=== PATIENT | female | born 1955 | race Caucasian/White ===

== ENCOUNTER → 2020-07-20 | Outpatient (CLI) | payer MEDICARE, MEDICAID ==
[~2020-07-20] MED LIST: AMBIEN 10MG10 MG PO; ANTI-DIARRHEAL2 MG PO; ASPIRIN 81M81 MG/TA2 PO; ASPIRIN E.C. 8181 MG PO; BENADRYL25 M2 PO; BIOTIN2500 MCG PO; CALCIUM 600MG+D1 TAB PO; CEPHALEXIN500 M1 PO; COENZYME Q10 PO; COREG 25MG25 MG/TAB PO; COUMADIN4 MG PO; ELIQUIS 5MG PO; ESTRACE 1MG1 MG/TAB PO; FOLIC ACID 11 MG/TA1 PO; GLUCOPHAGE500 MG/TAB PO; Garlic PO; HAIRSKINNAILS PO; IPRATROPIUM BROM3 M1 IH; LASIX 40MG TABL40 MG PO; LIDODERM 5% PATC1 EA TP; LINZESS290CAP PO; LIORESAL20 MG PO; LIPITOR20 MG PO; LOTENSIN40 MG PO; LYRICA 100MG C100 M1 PO; LYRICA 50MG CAP50 MG PO; MAALOX ADVANCED1 CTB PO; MELATIN 3 MG-11 TAB PO; MELATONIN5 M1 PO; MELATONIN5 M1 SL; MUCINEX1200 MG PO; MULTI VITAMINS1 TAB PO; MULTIPLE VITAMI1 TA5 PO; NAPROSYN500 MG PO; NORCO 325 MG-51 TAB PO; NORCO 325 MG-7.1 TAB PO; NORVASC 10MG10 MG PO; OMEGA-3 1000 MG1 CAP PO; OMNICEF 300MG300 MG PO; PEPTO BISM262 MG/15 PO; PRIL40 PO; PRISTIQ100 MG PO; PROTONIX 40MG T40 MG PO; SENNA-S 50 MG-81 TAB PO; SLEEP TABS25 MG PO; SYNTHROID0.1 MG/TAB PO; THERAGRAN TAB1 UDTAB PO; TYLENOL 325MG325 MG PO; TYLENOL 500MG500 MG PO; ULTRAM 50MG TAB50 MG PO; VENTOLIN0.09 MG IH; VOLTAREN GEL 1%1 TU TP; VTAMINC250TA PO; XANAX 0.5MG0.5 MG PO; ZOLOFT 50MG50 MG; ZOLOFT 50MG50 MG PO; ZYRTEC 10MG10 MG PO
[2020-07-20 18:23] LABS: CALCIUM 8.9 mg/dL (8.4-10.2); CREATININE, serum 0.89 (0.52-1.25); POTASSIUM 4.5 mmol/L (3.4-5.0)
== END ==
LOC: ZLAB.STJ 18:12
PROVIDERS: Family Medicine
DX: R79.89 Other specified abnormal findings of blood chemistry (principal)

== ENCOUNTER → 2020-07-27 | Outpatient (CLI) | payer MEDICARE, MEDICAID ==
[2020-07-27 19:32] LABS: CALCIUM 8.8 mg/dL (8.4-10.2); CREATININE, serum 0.87 (0.52-1.25); POTASSIUM 4.6 mmol/L (3.4-5.0)
== END ==
LOC: ZLAB.STJ 19:07
PROVIDERS: Family Medicine
DX: Z01.89 Encounter for other specified special examinations (principal)

== ENCOUNTER → 2020-08-02 | Outpatient (CLI) | payer MEDICARE, MEDICAID ==
[2020-08-02 11:07] LABS: BUDDING YEAST Present /hpf; MUCOUS Present /lpf; PH 5 (5-8); SQUAMOUS EPITHELIAL 0-2 /hpf; URINE APPEARANCE Turbid; URINE BACTERIA Rare /hpf; URINE BILIRUBIN Negative (NEGATIVE); URINE BLOOD Negative (NEGATIVE); URINE COLOR Amber; URINE GLUCOSE Negative (NEGATIVE); URINE KETONE Negative (NEGATIVE); URINE LEUKOCYTE ESTERASE Trace (NEGATIVE); URINE NITRATE Negative (NEGATIVE); URINE PROTEIN(semi-quant) Negative (NEGATIVE); URINE RBC 0-2 /hpf; URINE UROBILINOGEN Negative (NEGATIVE)
[2020-08-02 21:15] LABS: COLLECTION METHOD CATHETER
== END ==
LOC: ZLAB.STJ 09:46
PROVIDERS: Family Medicine
DX: R82.90 Unspecified abnormal findings in urine (principal)

== ENCOUNTER → 2020-08-04 | Outpatient (CLI) | payer MEDICARE, MEDICAID ==
[2020-08-04 14:30] LABS: CALCIUM 8.7 mg/dL (8.4-10.2); CREATININE, serum 0.63 (0.52-1.25)
[2020-08-04 14:34] LABS: POTASSIUM 10.2 mmol/L (3.4-5.0)
== END ==
LOC: ZLAB.STJ 13:12
PROVIDERS: Family Medicine
DX: I10 Essential (primary) hypertension (principal)

== ENCOUNTER → 2020-08-05 | Outpatient (CLI) | payer MEDICARE, MEDICAID ==
[2020-08-05 12:48] LABS: CALCIUM 9.2 mg/dL (8.4-10.2); CREATININE, serum 0.74 (0.52-1.25)
[2020-08-05 12:49] LABS: POTASSIUM 4.3 mmol/L (3.4-5.0)
== END ==
LOC: ZCOL.LAB 12:36
PROVIDERS: Family Medicine
DX: G35 Multiple sclerosis (principal)

== ENCOUNTER 2020-08-07 18:03 | Emergency (ER) | payer MEDICARE, MEDICAID ==
[~2020-08-07] VITALS: Ht 167.6 cm; Wt 113.6 kg
[2020-08-07 18:04] VITALS: BP 112/73; TEMP 98.3
[2020-08-07 18:44] LABS: BASO % 0.3 % (0.0-2.0); EOS # 0.2 (0.0-0.7); EOS % 2.6 % (0-4.0); GRAN # 5.7 (1.4-6.5); GRAN % 66.8 % (42.2-75.2); LYMPH % 23.8 % (20.0-51.0); MEAN CELL VOLUME 82 fl (80.0-100.0); MEAN CORPUSCULAR HGB CONC 28 g/dl (33.0-37.0); MONO # 0.5 (0.1-0.6); MONO % 6.3 % (1.7-9.3); PLATELET COUNT 264 K/mm3 (130-400); RED BLOOD COUNT 3.65 M/mm3 (4.10-5.30); REDCELL DISTRIBUTION WIDTH-CV 19.4 % (11.5-14.5)
[2020-08-07 18:51] LABS: HEMATOCRIT 29.9 % (37.0-47.0); HEMOGLOBIN 8.5 g/dl (12.5-16.0); MEAN CORPUSCULAR HEMOGLOBIN 23 pg (27.0-31.0)
[2020-08-07 18:52] LABS: ALBUMIN 3.2 gm/dL (3.5-5.0); BILIRUBIN,TOTAL 0.3 mg/dL (0.0-1.0); CALCIUM 9.3 mg/dL (8.4-10.2); CREATININE, serum 0.72 (0.52-1.25); POTASSIUM 4.2 mmol/L (3.4-5.0); TOTAL PROTEIN 6.4 gm/dL (6.4-8.2)
[2020-08-07 19:16] LABS: INR 1.6 (0.8-3.0); PROTHROMBIN TIME 18.2 SECONDS (9.7-12.8)
[2020-08-07 23:03] VITALS: PULSE 75
[2020-09-20] MEDS ORDERED: LINZESS290CAP PO (04:20)
== END 2020-08-07 23:08 | disposition home or self-care (01) ==
LOC: COL.ER 18:03
PROVIDERS: Physician Assistant
DX: M25.551 Pain in right hip (principal); R10.31 Right lower quadrant pain; M79.661 Pain in right lower leg; E11.40 Type 2 diabetes mellitus with diabetic neuropathy, unspecified; F41.0 Panic disorder [episodic paroxysmal anxiety]; E05.90 Thyrotoxicosis, unspecified without thyrotoxic crisis or storm; G47.33 Obstructive sleep apnea (adult) (pediatric); Z95.5 Presence of coronary angioplasty implant and graft; Z86.711 Personal history of pulmonary embolism; Z86.718 Personal history of other venous thrombosis and embolism; Z90.710 Acquired absence of both cervix and uterus; Z90.49 Acquired absence of other specified parts of digestive tract; Z86.79 Personal history of other diseases of the circulatory system; Z91.048 Other nonmedicinal substance allergy status; Z88.1 Allergy status to other antibiotic agents; Z88.8 Allergy status to other drugs, medicaments and biological substances; Z79.82 Long term (current) use of aspirin; Z79.84 Long term (current) use of oral hypoglycemic drugs; Z79.01 Long term (current) use of anticoagulants; Z79.890 Hormone replacement therapy; Z79.51 Long term (current) use of inhaled steroids
CPT/HCPCS: J3010; Q9967

== ENCOUNTER → 2020-08-09 | Outpatient (CLI) | payer MEDICARE, MEDICAID ==
[~2020-08-09] MED LIST changes: +COLACE 100100 MG/CAP PO; +COUMADIN 22.5 MG/TAB PO; +IMDUR 60MG60 MG/TAB PO; +LEADER EYE ITCH5 ML OU; +PLAVIX 75MG TAB75 MG PO; +PRINIVIL40 MG PO; +RISPERDAL 0.5M0.5 MG PO; +RISPERDAL 1M1 MG/TAB PO; +ZOFRAN 4MG T4 MG/TAB PO
[2020-08-10 16:19] LABS: ALBUMIN 3.2 gm/dL (3.5-5.0); BILIRUBIN,TOTAL 0.4 mg/dL (0.0-1.0); CREATININE, serum 0.68 (0.52-1.25); MAGNESIUM 1.6 mg/dL (1.6-2.3); PHOSPHOROUS 3.8 mg/dL (2.5-4.5); THYROID STIMULATING HORMONE 2.02 uIU/mL (0.465-4.680); TOTAL PROTEIN 6.4 gm/dL (6.4-8.2)
[2020-08-14 12:21] LABS: ADRENOCORTICOTROPIC HORMONE SEE PCI; CORTISOL, AM (0800) 2
== END ==
LOC: ZLAB.STJ 11:00
PROVIDERS: Family Medicine
DX: E03.9 Hypothyroidism, unspecified (principal); I10 Essential (primary) hypertension

== ENCOUNTER → 2020-08-10 | Outpatient (CLI) | payer MEDICARE, MEDICAID ==
[2020-08-10 17:23] LABS: CREATININE, serum 0.68 (0.52-1.25); POTASSIUM 4.3 mmol/L (3.4-5.0)
== END ==
LOC: ZCOL.LAB 13:58
PROVIDERS: Family Medicine
DX: Z01.89 Encounter for other specified special examinations (principal)

== ENCOUNTER → 2020-08-11 | Outpatient (CLI) | payer MEDICARE, MEDICAID ==
[2020-08-11 13:44] LABS: COLLECTION METHOD CATHETER
[2020-08-11 13:55] LABS: MUCOUS Present /lpf; PH 5 (5-8); SQUAMOUS EPITHELIAL 0-2 /hpf; URINE APPEARANCE Clear; URINE BACTERIA None Seen /hpf; URINE BILIRUBIN Negative (NEGATIVE); URINE BLOOD Negative (NEGATIVE); URINE COLOR Yellow; URINE GLUCOSE Negative (NEGATIVE); URINE KETONE Negative (NEGATIVE); URINE LEUKOCYTE ESTERASE Negative (NEGATIVE); URINE NITRATE Negative (NEGATIVE); URINE PROTEIN(semi-quant) Negative (NEGATIVE); URINE UROBILINOGEN Negative (NEGATIVE); URINE WBC 0-2 /hpf
== END ==
LOC: ZLAB.STJ 13:27
PROVIDERS: Family Medicine
DX: Z01.89 Encounter for other specified special examinations (principal)

== ENCOUNTER 2020-08-12 14:35 | Emergency (ER) | payer MEDICARE, MEDICAID ==
[~2020-08-12] VITALS: Ht 167.6 cm; Wt 113.6 kg
[2020-08-12 14:33] VITALS: TEMP 98.4
[~2020-08-12 14:35] MED LIST changes: -COLACE 100100 MG/CAP PO; -COUMADIN 22.5 MG/TAB PO; -IMDUR 60MG60 MG/TAB PO; -LEADER EYE ITCH5 ML OU; -PLAVIX 75MG TAB75 MG PO; -PRINIVIL40 MG PO; -RISPERDAL 0.5M0.5 MG PO; -RISPERDAL 1M1 MG/TAB PO; -ZOFRAN 4MG T4 MG/TAB PO
[2020-08-12 14:57] LABS: BASO # 0.1 (0.0-0.2); BASO % 0.4 % (0.0-2.0); EOS # 0.3 (0.0-0.7); EOS % 2.4 % (0-4.0); GRAN # 9.6 (1.4-6.5); GRAN % 77.7 % (42.2-75.2); LYMPH # 1.8 (1.2-3.4); LYMPH % 14.5 % (20.0-51.0); MEAN CELL VOLUME 83 fl (80.0-100.0); MEAN CORPUSCULAR HGB CONC 28 g/dl (33.0-37.0); MEAN PLATELET VOLUME 9.9 fl (7.4-10.4); MONO # 0.6 (0.1-0.6); MONO % 4.8 % (1.7-9.3); PLATELET COUNT 273 K/mm3 (130-400); RED BLOOD COUNT 3.66 M/mm3 (4.10-5.30); REDCELL DISTRIBUTION WIDTH-CV 19.5 % (11.5-14.5)
[2020-08-12 14:58] LABS: HEMATOCRIT 30.3 % (37.0-47.0); HEMOGLOBIN 8.5 g/dl (12.5-16.0); MEAN CORPUSCULAR HEMOGLOBIN 23 pg (27.0-31.0)
[2020-08-12 15:05] LABS: INR 3.6 (0.8-3.0); PROTHROMBIN TIME 40.5 SECONDS (9.7-12.8)
[2020-08-12 15:09] LABS: ARTERIAL BLD GAS TCO2 CT 29.7; ARTERIAL BLOOD GAS BASE EXCESS 1.2 (-2-2); ARTERIAL BLOOD GAS PCO2 56.4 mmHg (35-45); ARTERIAL BLOOD GAS PO2 93.6 mmHg (80-100); ARTERIAL BLOOD GAS pH 7.31 (7.35-7.45)
[2020-08-12 15:10] LABS: ALBUMIN 3.4 gm/dL (3.5-5.0); BILIRUBIN,TOTAL 0.4 mg/dL (0.0-1.0); C-REACTIVE PROTEIN 2.1 mg/dL (0.0-0.9); CREATININE, serum 1.07 (0.52-1.25); POTASSIUM 3.8 mmol/L (3.4-5.0); TOTAL PROTEIN 6.6 gm/dL (6.4-8.2)
--- NOTE | 2020-08-12 17:14 | NUR ---
PT INTUBATED AT [address] CUTLER. INTUBATION WENT SMOOTH WITH GOOD COLOR CHANGE ON C02 DETECTOR AND GOOD BILATERAL BREATH SOUNDS. ET TUBE PLACED AT 22 @ THE [facility]. INITIAL SETTINGS GIVEN BY RT APPROVED BY DR CUTLER.
[2020-08-12 17:30] LABS: COLLECTION METHOD CLEAN CATCH
[2020-08-12 17:37] LABS: MUCOUS Present /lpf; PH 5 (5-8); SQUAMOUS EPITHELIAL 0-2 /hpf; URINE APPEARANCE Clear; URINE BACTERIA None Seen /hpf; URINE BILIRUBIN Negative (NEGATIVE); URINE BLOOD Negative (NEGATIVE); URINE COLOR Yellow; URINE GLUCOSE Negative (NEGATIVE); URINE KETONE Negative (NEGATIVE); URINE LEUKOCYTE ESTERASE Trace (NEGATIVE); URINE NITRATE Negative (NEGATIVE); URINE PROTEIN(semi-quant) Negative (NEGATIVE); URINE RBC 0-2 /hpf; URINE UROBILINOGEN Negative (NEGATIVE)
[2020-08-12 18:10] VITALS: BP 110/72; PULSE 84
[2020-09-20] MEDS ORDERED: LINZESS290CAP PO (04:20)
== END 2020-08-12 18:10 | disposition short-term general hospital (02) ==
LOC: COL.ER 14:35
PROVIDERS: Family Medicine
DX: J96.90 Respiratory failure, unspecified, unspecified whether with hypoxia or hypercapnia (principal); R41.82 Altered mental status, unspecified; I10 Essential (primary) hypertension; E78.5 Hyperlipidemia, unspecified; E11.9 Type 2 diabetes mellitus without complications; E03.9 Hypothyroidism, unspecified; F32.9 Major depressive disorder, single episode, unspecified; M79.7 Fibromyalgia; E66.01 Morbid (severe) obesity due to excess calories; K21.9 Gastro-esophageal reflux disease without esophagitis; G35 Multiple sclerosis; Z20.822 Contact with and (suspected) exposure to COVID-19; Z86.718 Personal history of other venous thrombosis and embolism; Z86.711 Personal history of pulmonary embolism; Z79.01 Long term (current) use of anticoagulants; Z86.16 Personal history of COVID-19; Z88.2 Allergy status to sulfonamides; Z88.1 Allergy status to other antibiotic agents; Z88.8 Allergy status to other drugs, medicaments and biological substances; Z79.82 Long term (current) use of aspirin; Z79.84 Long term (current) use of oral hypoglycemic drugs; Z79.890 Hormone replacement therapy
CPT/HCPCS: J0330; J0456; J0696; J2310; J2704; J3010; J3370; J7030; J7050

== ENCOUNTER → 2020-09-04 | Outpatient (CLI) | payer MEDICARE, MEDICAID ==
[~2020-09-04] MED LIST changes: +COLACE 100100 MG/CAP PO; +COUMADIN 22.5 MG/TAB PO; +IMDUR 60MG60 MG/TAB PO; +LEADER EYE ITCH5 ML OU; +PLAVIX 75MG TAB75 MG PO; +PRINIVIL40 MG PO; +RISPERDAL 0.5M0.5 MG PO; +RISPERDAL 1M1 MG/TAB PO; +ZOFRAN 4MG T4 MG/TAB PO
== END ==
LOC: MC.RAD 13:10
DX: Z12.31 Encounter for screening mammogram for malignant neoplasm of breast (principal)

== ENCOUNTER 2020-09-24 17:20 | Emergency (ER) | payer MEDICARE, MEDICAID ==
[~2020-09-24] VITALS: Ht 170.2 cm; Wt 110.5 kg
[~2020-09-24 17:20] MED LIST changes: -COLACE 100100 MG/CAP PO; -COUMADIN 22.5 MG/TAB PO; -IMDUR 60MG60 MG/TAB PO; -LEADER EYE ITCH5 ML OU; -PLAVIX 75MG TAB75 MG PO; -PRINIVIL40 MG PO; -RISPERDAL 0.5M0.5 MG PO; -RISPERDAL 1M1 MG/TAB PO; -ZOFRAN 4MG T4 MG/TAB PO
[2020-09-24 17:21] VITALS: TEMP 98.2
[2020-09-24 17:56] LABS: BASO # 0.1 (0.0-0.2); BASO % 0.6 % (0.0-2.0); EOS # 0.3 (0.0-0.7); EOS % 2.4 % (0-4.0); GRAN # 8.3 (1.4-6.5); GRAN % 72.3 % (42.2-75.2); LYMPH % 17.7 % (20.0-51.0); MEAN CELL VOLUME 82 fl (80.0-100.0); MEAN CORPUSCULAR HGB CONC 29 g/dl (33.0-37.0); MEAN PLATELET VOLUME 9.1 fl (7.4-10.4); MONO # 0.8 (0.1-0.6); MONO % 6.6 % (1.7-9.3); PLATELET COUNT 383 K/mm3 (130-400); RED BLOOD COUNT 3.89 M/mm3 (4.10-5.30); REDCELL DISTRIBUTION WIDTH-CV 17.4 % (11.5-14.5)
[2020-09-24 17:59] LABS: HEMATOCRIT 31.9 % (37.0-47.0); HEMOGLOBIN 9.1 g/dl (12.5-16.0); MEAN CORPUSCULAR HEMOGLOBIN 23 pg (27.0-31.0)
[2020-09-24 18:08] LABS: ALBUMIN 3.7 gm/dL (3.5-5.0); BILIRUBIN,TOTAL 0.1 mg/dL (0.0-1.0); CALCIUM 9.3 mg/dL (8.4-10.2); CREATININE, serum 0.71 (0.52-1.25); POTASSIUM 4.3 mmol/L (3.4-5.0); TOTAL PROTEIN 7.4 gm/dL (6.4-8.2)
[2020-09-24 19:03] LABS: COLLECTION METHOD CLEAN CATCH
[2020-09-24 19:09] LABS: MUCOUS Present /lpf; PH 6 (5-8); SQUAMOUS EPITHELIAL None Seen /hpf; URINE APPEARANCE Clear; URINE BACTERIA None Seen /hpf; URINE BILIRUBIN Negative (NEGATIVE); URINE BLOOD Negative (NEGATIVE); URINE COLOR Yellow; URINE GLUCOSE Negative (NEGATIVE); URINE KETONE Negative (NEGATIVE); URINE LEUKOCYTE ESTERASE Trace (NEGATIVE); URINE NITRATE Negative (NEGATIVE); URINE PROTEIN(semi-quant) Negative (NEGATIVE); URINE RBC 0-2 /hpf; URINE UROBILINOGEN Negative (NEGATIVE)
[2020-09-24] MEDS ORDERED: NORCO 325 MG-51 TAB PO (19:39)
[2020-09-24 20:30] VITALS: BP 154/91; PULSE 94
== END 2020-09-24 20:19 | disposition home or self-care (01) ==
LOC: COL.ER 17:20
PROVIDERS: Family Medicine
DX: R10.11 Right upper quadrant pain (principal); R11.0 Nausea; E66.01 Morbid (severe) obesity due to excess calories; G35 Multiple sclerosis; E11.40 Type 2 diabetes mellitus with diabetic neuropathy, unspecified; M79.7 Fibromyalgia; Z90.49 Acquired absence of other specified parts of digestive tract; Z90.710 Acquired absence of both cervix and uterus; Z88.2 Allergy status to sulfonamides; Z88.1 Allergy status to other antibiotic agents; Z88.8 Allergy status to other drugs, medicaments and biological substances; Z79.82 Long term (current) use of aspirin; Z79.84 Long term (current) use of oral hypoglycemic drugs; Z79.01 Long term (current) use of anticoagulants; Z68.38 Body mass index [BMI] 38.0-38.9, adult
CPT/HCPCS: J2060; J2270; J2405; J7120; Q9967

== ENCOUNTER → 2020-10-10 | Outpatient (REF) ==
[~2020-10-10] MED LIST changes: +COLACE 100100 MG/CAP PO; +COUMADIN 22.5 MG/TAB PO; +IMDUR 60MG60 MG/TAB PO; +LEADER EYE ITCH5 ML OU; +PLAVIX 75MG TAB75 MG PO; +PRINIVIL40 MG PO; +RISPERDAL 0.5M0.5 MG PO; +RISPERDAL 1M1 MG/TAB PO; +ZOFRAN 4MG T4 MG/TAB PO
== END ==
LOC: ZLAB.STJ 15:44
DX: E11.40 Type 2 diabetes mellitus with diabetic neuropathy, unspecified (principal)

== ENCOUNTER 2020-10-15 01:04 | Inpatient (IN) | payer MEDICARE, MEDICAID ==
[~2020-10-15] VITALS: Ht 167.6 cm; Wt 115.3 kg
[~2020-10-15 01:04] MED LIST changes: -COLACE 100100 MG/CAP PO; -COUMADIN 22.5 MG/TAB PO; -IMDUR 60MG60 MG/TAB PO; -LEADER EYE ITCH5 ML OU; -PLAVIX 75MG TAB75 MG PO; -PRINIVIL40 MG PO; -RISPERDAL 0.5M0.5 MG PO; -RISPERDAL 1M1 MG/TAB PO; -ZOFRAN 4MG T4 MG/TAB PO
[2020-10-15 02:02] LABS: BASO # 0.1 (0.0-0.2); BASO % 0.6 % (0.0-2.0); EOS # 0.4 (0.0-0.7); EOS % 3.9 % (0-4.0); GRAN % 70.9 % (42.2-75.2); HEMATOCRIT 29.9 % (37.0-47.0); HEMOGLOBIN 8.6 g/dl (12.5-16.0); LYMPH % 17.6 % (20.0-51.0); MEAN CELL VOLUME 80 fl (80.0-100.0); MEAN CORPUSCULAR HEMOGLOBIN 23 pg (27.0-31.0); MEAN CORPUSCULAR HGB CONC 29 g/dl (33.0-37.0); MEAN PLATELET VOLUME 8.8 fl (7.4-10.4); MONO # 0.7 (0.1-0.6); MONO % 6.6 % (1.7-9.3); PLATELET COUNT 345 K/mm3 (130-400); RED BLOOD COUNT 3.75 M/mm3 (4.10-5.30)
[2020-10-15 02:12] LABS: ALBUMIN 3.6 gm/dL (3.5-5.0); BILIRUBIN,TOTAL 0.2 mg/dL (0.0-1.0); CALCIUM 9.4 mg/dL (8.4-10.2); CREATININE, serum 0.78 (0.52-1.25); INR 2.7 (0.8-3.0); POTASSIUM 4.1 mmol/L (3.4-5.0); PROTHROMBIN TIME 30.5 SECONDS (9.7-12.8); TOTAL PROTEIN 7.1 gm/dL (6.4-8.2)
[2020-10-15 02:24] LABS: TROPONIN-I 0.012 ng/mL (0.000-0.035)
[2020-10-15] MEDS ORDERED: COLACE 100100 MG/CAP PO (04:22)
[2020-10-15] MEDS ORDERED: AMBIEN 10MG10 MG PO (04:23)
[2020-10-15] MEDS ORDERED: ZOFRAN 4MG T4 MG/TAB PO (04:24)
[2020-10-15] MEDS ORDERED: LEADER EYE ITCH5 ML OU (04:28)
[2020-10-15] MEDS ORDERED: BENADRYL25 M2 PO (04:29)
[2020-10-15] MEDS ORDERED: NORVASC 10MG10 MG PO (04:31)
[2020-10-15] MEDS ORDERED: RISPERDAL 1M1 MG/TAB PO (04:32)
[2020-10-15] MEDS ORDERED: RISPERDAL 0.5M0.5 MG PO (04:37)
[2020-10-15] MEDS ORDERED: IMDUR 60MG60 MG/TAB PO (04:38)
[2020-10-15] MEDS ORDERED: PRINIVIL40 MG PO (04:39)
[2020-10-15] MEDS ORDERED: PLAVIX 75MG TAB75 MG PO (04:40)
[2020-10-15 05:20] VITALS: BP 124/68; PULSE 91; TEMP 97.6
--- NOTE | 2020-10-15 05:44 | NUR ---
Awake, alert, oriented x 4, able to clearly make needs known, NPO status maintained, updated on consult with Cardiology, updated on plan of care- verbalized understanding, assessment completed at this time, VS stable, no s/s of hypo/hyper glycemia, incontinent of both bowel and bladder, +1 edema to BLE- elevated on pillows, telemetry in use, Natividad Spears at bedside.
--- NOTE | 2020-10-15 07:00 | NUR ---
Report with YAHAIRA Mcfarlane. Pt resting in bed with eyes closed, resp even and unlabored. IVF's infusing per orders. Call light in reach.
[2020-10-15 08:05] VITALS: BP 115/66; PULSE 83; TEMP 97.8
--- NOTE | 2020-10-15 09:00 | NUR ---
Assessment complete. Pt resting in bed, drowsy but A&O x 3, denies pain at this time. Physical assessment unremarkable. IVF's stopped by provider, disconnected at this time, saline lock IV to right AC without s/s of complications. No further needs reported. Call light in reach.
[2020-10-15 11:14] VITALS: BP 102/55; PULSE 86; TEMP 98.2
--- NOTE | 2020-10-15 11:28 | NUR ---
Received call from call center, patient with TURKEY allergy in [place], however patient reported this is not accurate. Reviewed current allergy list with RN, Emelia, no turkey allergy listed in [facility]. Removed turkey allergy from [place] to allow patient to order a turkey sandwich.
--- NOTE | 2020-10-15 11:30 | NUR ---
Plan is to return to [facility] alf. SW met with patient about care. Patient reports that her DTR Goldie is her support person . Patient reports that she uses a walker and wheelchair. Daughter is reported as verbal poa but has not verified ppw on file. Patient reports that she has two sons but does not have there phone numbers. Zak. Patient shares that her PCP is Dr. Leal and [facility] takes care of her RX. Will follow
[2020-10-15 17:34] VITALS: BP 95/54; PULSE 82; TEMP 97.9
--- NOTE | 2020-10-15 17:48 | NUR ---
Report received from YAHAIRA Kapoor. PT in bed resting with daughter at bedside for most of afternoon. PRN ultram given per request, denies other needs, resting quietly in bed, will give bedside shift report to nightshift nurse who will resume care.
[2020-10-15 18:52] VITALS: BP 94/48; PULSE 83; TEMP 98.1
--- NOTE | 2020-10-15 21:07 | NUR ---
Awake, alert, oriented x 4, able to make needs known, x 2 max assist with movement, tuned and offloading pressure q 2 hours, incontinent of bowel and bladder, no s/s of hypo/hyper glycemia, VS stable, fall precautions in use, good appetite, telemetry in use, updated on plan of care- verbalized understanding.
[2020-10-15 23:04] VITALS: BP 90/50; PULSE 80; TEMP 98.4
--- NOTE | 2020-10-15 23:50 | NUR ---
Resting quietly, telemetry in use, VS stable, fall precautions in place, call prescott w/i reach.
[2020-10-16 04:07] VITALS: BP 96/53; PULSE 83; TEMP 98.1
--- NOTE | 2020-10-16 06:55 | NUR ---
Report with YAHAIRA Mcfarlane. Pt drowsy but awake, denies pain or needs at this time, has questions about her possible procedure and IV. Current IVF's on standby d/t IV in right AC not working. This nurse reassures pt we are working on a plan and will update her when we know more. Call light in reach.
[2020-10-16 07:33] VITALS: BP 98/51; PULSE 89; TEMP 98
--- NOTE | 2020-10-16 07:35 | NUR ---
Assessment complete. Pt resting in bed, A&O x 3, reports pain to back and legs 8 out of 10, pain medication on board by material handler 2nd shift. IV to right AC removed d/t signs of infiltration and leaking. POC reviewed with pt. O2 administered via NC at 2 L/min. No further needs reported. Call light in reach.
[2020-10-16 07:49] LABS: BASO % 0.3 % (0.0-2.0); EOS # 0.4 (0.0-0.7); EOS % 3.3 % (0-4.0); GRAN # 8.8 (1.4-6.5); GRAN % 71.3 % (42.2-75.2); LYMPH # 2.3 (1.2-3.4); LYMPH % 18.7 % (20.0-51.0); MEAN CELL VOLUME 83 fl (80.0-100.0); MEAN CORPUSCULAR HGB CONC 28 g/dl (33.0-37.0); MONO # 0.7 (0.1-0.6); PLATELET COUNT 274 K/mm3 (130-400); RED BLOOD COUNT 3.25 M/mm3 (4.10-5.30); REDCELL DISTRIBUTION WIDTH-CV 17.2 % (11.5-14.5)
[2020-10-16 07:52] LABS: HEMATOCRIT 26.9 % (37.0-47.0); HEMOGLOBIN 7.6 g/dl (12.5-16.0); MEAN CORPUSCULAR HEMOGLOBIN 23 pg (27.0-31.0)
[2020-10-16 08:02] LABS: PROTHROMBIN TIME 33.9 SECONDS (9.7-12.8)
[2020-10-16 08:10] LABS: CALCIUM 8.8 mg/dL (8.4-10.2); CREATININE, serum 0.79 (0.52-1.25); POTASSIUM 3.9 mmol/L (3.4-5.0)
--- NOTE | 2020-10-16 10:29 | NUR ---
Pt reports nasal drainage with scant amount of red blood. Bubbler added to O2. Pt also reports WITT 8 out of 10, requests PRN pain medication which is administered per orders. No further needs reported. Call light in reach.
[2020-10-16 11:43] LABS: IRON,SERUM 20 ug/dL (35-150)
[2020-10-16 11:52] LABS: TOTAL IRON BINDING CAPACITY 354 ug/dL (265-497)
--- NOTE | 2020-10-16 12:07 | NUR ---
First visit from the process equipment operator. prayed with patient. No other needs right now.
[2020-10-16 12:25] VITALS: BP 99/49; PULSE 90; TEMP 98.7
--- NOTE | 2020-10-16 14:33 | NUR ---
Bridge Inspector faxed clinical updates to [facility].
[2020-10-16 16:09] VITALS: BP 91/54; PULSE 89; TEMP 98.4
--- NOTE | 2020-10-16 18:10 | NUR ---
Pt reports pain increase to legs, back and back of right arm, PRN pain medication and anxiety medication administered per orders and pt's request. PICC to right upper arm without s/s of infiltration or phlebitis, LEIF wrapped removed for this time and pillow placed under arm. Call light in reach.
--- NOTE | 2020-10-16 18:45 | NUR ---
Report to YAHAIRA Mcfarlane.
--- NOTE | 2020-10-16 19:25 | NUR ---
Resting quietly in bed, requires encouragement for movement, Picc line to R upper arm w/o difficulties, continues on telemetry w/o difficulty, denies chest pain, incontinent of bowel and bladder, appetite good, will continue to monitor
[2020-10-16 19:36] VITALS: BP 102/55; PULSE 94; TEMP 98.3
[2020-10-16 23:42] VITALS: BP 109/53; PULSE 91; TEMP 98.6
[2020-10-17] VITALS (7 sets, daily range): BP systolic 95–119; BP diastolic 50–62; PULSE 84–93; TEMP 97.9–98.6
[2020-10-17 07:02] LABS: BASO # 0.1 (0.0-0.2); BASO % 0.5 % (0.0-2.0); EOS # 0.4 (0.0-0.7); EOS % 3.8 % (0-4.0); GRAN # 7.2 (1.4-6.5); GRAN % 70.6 % (42.2-75.2); LYMPH # 1.8 (1.2-3.4); MEAN CELL VOLUME 81 fl (80.0-100.0); MEAN CORPUSCULAR HGB CONC 30 g/dl (33.0-37.0); MEAN PLATELET VOLUME 9.2 fl (7.4-10.4); MONO # 0.7 (0.1-0.6); MONO % 6.7 % (1.7-9.3); PLATELET COUNT 290 K/mm3 (130-400); RED BLOOD COUNT 2.96 M/mm3 (4.10-5.30); REDCELL DISTRIBUTION WIDTH-CV 17.1 % (11.5-14.5)
[2020-10-17 07:04] LABS: HEMATOCRIT 24.1 % (37.0-47.0); HEMOGLOBIN 7.1 g/dl (12.5-16.0); MEAN CORPUSCULAR HEMOGLOBIN 24 pg (27.0-31.0)
[2020-10-17 07:09] LABS: CALCIUM 8.6 mg/dL (8.4-10.2); CREATININE, serum 0.74 (0.52-1.25); POTASSIUM 3.9 mmol/L (3.4-5.0)
[2020-10-17 07:21] LABS: PROTHROMBIN TIME 22.4 SECONDS (9.7-12.8)
--- NOTE | 2020-10-17 11:42 | NUR ---
Bar Captain attended clinical rounds with the team then met with patient to check in. Patient confirms the plan is to return to [facility]. PEDRO requested PT/OT orders then faxed clinical updates to Jean at [facility].
--- NOTE | 2020-10-17 19:11 | NUR ---
End of shift. Pt resting in bed. Has had incontinent episodes, is unaware of need to go but will tell nursing staff when needing to get changed. Has demonstrated proper use of the call light this shift. Refused SCD's when asked by this nurse if ready for reapplication.
[2020-10-18] VITALS (10 sets, daily range): BP systolic 95–122; BP diastolic 46–76; PULSE 77–85; TEMP 97.8–99.3
[2020-10-18 06:12] LABS: BASO # 0.1 (0.0-0.2); BASO % 0.5 % (0.0-2.0); EOS # 0.3 (0.0-0.7); EOS % 3.2 % (0-4.0); GRAN # 7.1 (1.4-6.5); GRAN % 70.5 % (42.2-75.2); LYMPH # 1.8 (1.2-3.4); LYMPH % 17.5 % (20.0-51.0); MEAN CELL VOLUME 82 fl (80.0-100.0); MEAN CORPUSCULAR HGB CONC 28 g/dl (33.0-37.0); MEAN PLATELET VOLUME 9.1 fl (7.4-10.4); MONO # 0.8 (0.1-0.6); MONO % 7.8 % (1.7-9.3); PLATELET COUNT 304 K/mm3 (130-400); RED BLOOD COUNT 3.04 M/mm3 (4.10-5.30); REDCELL DISTRIBUTION WIDTH-CV 17.2 % (11.5-14.5)
[2020-10-18 06:21] LABS: INR 1.4 (0.8-3.0); PROTHROMBIN TIME 15.3 SECONDS (9.7-12.8)
[2020-10-18 06:23] LABS: CALCIUM 9.2 mg/dL (8.4-10.2); CREATININE, serum 0.79 (0.52-1.25); POTASSIUM 3.8 mmol/L (3.4-5.0)
--- NOTE | 2020-10-18 06:25 | NUR ---
PT SITTING UP IN BED, A/0X4, C/O PAIN TO BACK AND LEGS, RATES PAIN AT A 7/10. VSS. PT WAS MEDICATED AND REPOSITIONED. WAS RUNNING SOFT BP'S THROUGHOUT NIGHT. WORE CPAP THROUGH OUT NIGHT. PT CURRENTLY EXPRESSES NO ADDITIONAL NEEDS AT THIS TIME. CALL LIGHT WITHIN REACH. REMINDED PT OF NPO STATUS.
[2020-10-18 06:32] LABS: MEAN CORPUSCULAR HEMOGLOBIN 23 pg (27.0-31.0)
--- NOTE | 2020-10-18 06:55 | NUR ---
Report with YAHAIRA Norman and YAHAIRA Pimentel. Pt resting in bed with eyes closed, resp even and unlabored. Call light in reach.
--- NOTE | 2020-10-18 08:00 | NUR ---
Assessment complete. Pt resting in bed, A&O x 3, reports pain to back, legs and arms 9 out of 10 with intermittent shaking. PICC to right upper arm withou s/s of complications. O2 at 2 L/min via NC. Edema to bilat lower ext. No further needs reported. Call light in reach.
--- NOTE | 2020-10-18 09:00 | NUR ---
This nurse reports to pt plan for heart cath around 1000 but blood for transfusion will not arrive until afternoon. Pt refuses to have heart cath before the blood transfusion s/p conversation with doctor last night. Providers notified.
--- NOTE | 2020-10-18 10:30 | NUR ---
This nurse relays new plan for stress test today while awaiting blood to arrive but pt refusing stress test d/t already feeling stressed enough, states,"I don't want to do anything until I've gotten the blood." Providers notified.
--- NOTE | 2020-10-18 14:16 | NUR ---
Manager Of Medical attended clinical rounds with the team. Patient to have heart cath tomorrow and she was changed to inpatient status. Patient's daughter, Ekta is on speakerphone during rounds. PEDRO faxed clinical updates to Jean at [email or web address] [email or web address].
--- NOTE | 2020-10-18 17:00 | NUR ---
One unit blood transfusion complete without adverse reactions. VSS. Pt informed that second unit should be on its way. No further needs reported. Call light in reach.
--- NOTE | 2020-10-18 19:00 | NUR ---
Report with YAHAIRA Norman and YAHAIRA Pimentel.
[2020-10-18 19:40] LABS: HEMATOCRIT 27.8 % (37.0-47.0); HEMOGLOBIN 8.2 g/dl (12.5-16.0)
--- NOTE | 2020-10-18 22:25 | NUR ---
PT LAYING DOWN IN BED, A/OX4, 02 ROOM AIR, PT STATES HER NOSE IS STUFFY SO SHE TOOK OFF NC MOMENTARILY. PT REPORTS FEELING EXTREMELY NAUSEATED AND "SHAKY". VSS, PT APPEARS TO BE ANXIOUS. REPORTS PAIN TO ABDOMEN AND LEGS AT 8 OUT OF 10. NURSE REPOSITIONED PT. AND WAS ABLE TO CONDUCT PERINEUM CARE. PT WAS MEDICATED FOR PAIN AND NAUSEA. UPON F/U PT STATES SHE FEELS MUCH BETTER AND CONTINUES TO REST, 02 2L NC. NURSE REMINDED PT OF NPO STATUS AFTER 0000. PT CONFIRMS UNDERSTANDING. NO ADDITIONAL NEEDS EXPRESSED AT THIS TIME. CALL LIGHT WITHIN REACH. WILL CONTINUE TO MONITOR.
[2020-10-19] VITALS (16 sets, daily range): BP systolic 107–157; BP diastolic 59–90; PULSE 78–101; TEMP 98–98.9
--- NOTE | 2020-10-19 00:29 | NUR ---
1 UNIT PRBC TRANSFUSION INITIATED AT THIS TIME. PATIENT HAS BEEN EDUCATED ON S/S OF TRANSFUSION REACTION. PATIENT TOLERATES TRANSFUSION WELL. RATE INCREASED TO 200 ML/HR. REMAINED AT BEDSIDE FOR FIRST 15 MINUTES OF TRANSFUSION. WILL CONTINUE TO CLOSELY MONITOR.
--- NOTE | 2020-10-19 02:54 | NUR ---
BLOOD ADMINISTRATION COMPLETE. INFUSED AT 150ML/HR. PT SITTING UP IN BED, A/0X4, VSS, 02 NC 2L. PT TOLERATED TRANSFUSION WELL. PT FREE OF N/V, PAIN, CHILLS, FEVER. CALL LIGHT WITHIN REACH.
[2020-10-19 06:41] LABS: BASO # 0.1 (0.0-0.2); BASO % 0.5 % (0.0-2.0); EOS # 0.5 (0.0-0.7); EOS % 4.4 % (0-4.0); GRAN # 7.6 (1.4-6.5); GRAN % 72.1 % (42.2-75.2); HEMATOCRIT 29.4 % (37.0-47.0); HEMOGLOBIN 8.8 g/dl (12.5-16.0); INR 1.3 (0.8-3.0); LYMPH # 1.7 (1.2-3.4); LYMPH % 15.7 % (20.0-51.0); MEAN CELL VOLUME 81 fl (80.0-100.0); MEAN CORPUSCULAR HEMOGLOBIN 24 pg (27.0-31.0); MEAN CORPUSCULAR HGB CONC 30 g/dl (33.0-37.0); MEAN PLATELET VOLUME 9.2 fl (7.4-10.4); MONO # 0.7 (0.1-0.6); MONO % 6.6 % (1.7-9.3); PLATELET COUNT 292 K/mm3 (130-400); PROTHROMBIN TIME 14.1 SECONDS (9.7-12.8); RED BLOOD COUNT 3.63 M/mm3 (4.10-5.30); REDCELL DISTRIBUTION WIDTH-CV 17.2 % (11.5-14.5)
[2020-10-19 06:42] LABS: CALCIUM 9.2 mg/dL (8.4-10.2); CREATININE, serum 0.81 (0.52-1.25); POTASSIUM 3.7 mmol/L (3.4-5.0)
--- NOTE | 2020-10-19 11:45 | NUR ---
Patient is being taken down to the clam bed laborer at this time, discussed plan of care with the patient prior too and has patien thas given consent
--- NOTE | 2020-10-19 12:45 | NUR ---
Patient arrived back to room 357 from central lab technician at this time, she is drowsy but alert/oriented, vital signs stable, denies pain, small spot of blood on right groind dressing site but othewise sit is soft with no signs of bleeding or hematoma, will continue to monitor closely
--- NOTE | 2020-10-19 13:43 | NUR ---
Internet Sales Director faxed clinical updates to Jean at [facility].
--- NOTE | 2020-10-19 14:41 | NUR ---
Patient continues to do well post heart cath, vital signs stable, she does have some scant/small amount of blood on her bandage to right groin access site, site is still soft without signs of hematoma formation or heavy bleeding, I did hold gently manual pressure at site for 5 minutes, will continue to monitor closely
--- NOTE | 2020-10-19 15:02 | NUR ---
PT REFUSED TREATMENT AT THIS TIME
--- NOTE | 2020-10-19 17:38 | NUR ---
continues to do well post heart cath, right groin site has stopped oozing, site is soft without signs of hematoma or internal bleeding, vital signs stable, patient reporting neck/back/leg/chest pain, I gave some morphine and this has helped, she also started to have some nausea and I gave a dose of zofran, the right radial compression band was removed/ bandaid applied, her flat time has ended and i have raised her head some and will continue to do groin site and VS checks per protocol, patient will start a bowel prep this evening for EGD/Colonoscopy tommorow 10/20/20
--- NOTE | 2020-10-19 21:30 | NUR ---
Patient pushes call light at this time with complaints of "feeling clammy" and nauseous. She has vomited approx 20 mls of clear vomit into basin. PRN Zofran is administered. She has drank the first 3 bottles of her bowel prep rather quickly. BG is assessed at this time and results 160. BP is 85/54, HR 91. FLIGHT CREW SCHEDULER Mallory Mcguire is notified and orders labs to be drawn in addition to a 1000 ml bolus. Patient complains of abdominal pain, especially with palpation. ABD CT order is obtained as well. EKG is also performed. Pending results on these new diagnostics. After 500 mls of the fluid bolus, patient's BP is up to 101/59. Will continue to monitor.
[2020-10-19 22:06] LABS: HEMATOCRIT 32.7 % (37.0-47.0); HEMOGLOBIN 9.6 g/dl (12.5-16.0)
[2020-10-19 22:27] LABS: ANION GAP 7 mmol/L (7-16); BLOOD UREA NITROGEN 12 mg/dL (7-17); CALCIUM 9.3 mg/dL (8.4-10.2); CARBON DIOXIDE 29 mmol/L (22-30); CHLORIDE 101 mmol/L (98-107); CREATININE, serum 0.84 (0.52-1.25); GLUCOSE 138 mg/dL (74-106); MAGNESIUM 1.7 mg/dL (1.6-2.3); PHOSPHOROUS 4.3 mg/dL (2.5-4.5); POTASSIUM 3.7 mmol/L (3.4-5.0); SODIUM 137 mmol/L (137-145)
[2020-10-19 22:41] LABS: TROPONIN-I < 0.012 ng/mL (0.000-0.035)
[2020-10-20] VITALS (8 sets, daily range): BP systolic 87–148; BP diastolic 53–77; PULSE 76–101; TEMP 98.3–98.6
[2020-10-20 04:26] LABS: BASO # 0.1 (0.0-0.2); BASO % 0.5 % (0.0-2.0); EOS # 0.3 (0.0-0.7); EOS % 2.2 % (0-4.0); GRAN # 9.4 (1.4-6.5); GRAN % 76.1 % (42.2-75.2); LYMPH # 1.7 (1.2-3.4); LYMPH % 13.9 % (20.0-51.0); MEAN CELL VOLUME 82 fl (80.0-100.0); MEAN CORPUSCULAR HGB CONC 29 g/dl (33.0-37.0); MEAN PLATELET VOLUME 8.8 fl (7.4-10.4); MONO # 0.8 (0.1-0.6); MONO % 6.7 % (1.7-9.3); PLATELET COUNT 284 K/mm3 (130-400); RED BLOOD COUNT 3.57 M/mm3 (4.10-5.30); REDCELL DISTRIBUTION WIDTH-CV 17.6 % (11.5-14.5)
[2020-10-20 04:28] LABS: HEMATOCRIT 29.3 % (37.0-47.0); HEMOGLOBIN 8.5 g/dl (12.5-16.0); MEAN CORPUSCULAR HEMOGLOBIN 24 pg (27.0-31.0)
[2020-10-20 04:34] LABS: INR 1.2 (0.8-3.0); PROTHROMBIN TIME 13.8 SECONDS (9.7-12.8)
[2020-10-20 04:36] LABS: ANION GAP 3 mmol/L (7-16); BLOOD UREA NITROGEN 12 mg/dL (7-17); CALCIUM 8.6 mg/dL (8.4-10.2); CARBON DIOXIDE 30 mmol/L (22-30); CHLORIDE 105 mmol/L (98-107); GLUCOSE 95 mg/dL (74-106); MAGNESIUM 1.6 mg/dL (1.6-2.3); POTASSIUM 3.9 mmol/L (3.4-5.0); SODIUM 137 mmol/L (137-145)
[2020-10-20 04:53] LABS: TROPONIN-I 6 HR POST INITIAL < 0.012 ng/mL (0.000-0.034)
--- NOTE | 2020-10-20 05:40 | NUR ---
BP 84/56 AT THIS TIME. DONALD NOTIFIED AND A 5OO ML BOLUS IS INITIATED. MONITORING BP'S Q10 MIN AT THIS TIME.
--- NOTE | 2020-10-20 11:15 | NUR ---
Pt left for EGD/Colonoscopy at this time.
[2020-10-20] MEDS ORDERED: PROTONIX 40MG T40 MG PO (15:12)
[2020-10-20] MEDS ORDERED: COUMADIN 22.5 MG/TAB PO (15:18)
[2020-10-20] MEDS ORDERED: ULTRAM 50MG TAB50 MG PO (15:19)
[2020-10-20] MEDS ORDERED: XANAX 0.5MG0.5 MG PO (15:20)
[2020-10-20] MEDS ORDERED: AMBIEN 10MG10 MG PO (15:20)
--- NOTE | 2020-10-20 16:59 | NUR ---
Artificial Stone Applicator collaborated with Hospitalist who advised patient is discharged today. Patient does not have three inpatient midnights and to return to [facility]. After arrangements for transport were made, PEDRO was advised by RNMonica that patient is not feeling well and will not discharge. PEDRO updated Jean at [facility] who advised if patient needs to go skilled, a prior authorization will be needed. PEDRO updated Hospitalist on this. PEDRO also contacted patient's daughter, Ekta to provide update. Discharge plan: [facility].
--- NOTE | 2020-10-20 17:40 | NUR ---
Patient had discharge orders, but voiced concerns of not being ready. Doctor notified and the patient is not leaving today. Complaints of pain in abdomen and back, pain medication given when requested. BM loose with clots, doctor aware. IV CDI. Patient A&Ox4. VSS. No further needs expressed from the patient. Call light within reach
[2020-10-21 04:12] VITALS: BP 121/70; PULSE 77; TEMP 97.9
--- NOTE | 2020-10-21 05:42 | NUR ---
PATIENT SLEPT WELL AFTER AMBIEN GIVEN. PATIENT HAD N/C OF PAIN AND WAS SLEEPING AT EACH CHECK. NO CONCERNS VOICED THID SHIFT.
[2020-10-21 07:18] LABS: CALCIUM 8.5 mg/dL (8.4-10.2); CREATININE, serum 0.64 (0.52-1.25); POTASSIUM 3.4 mmol/L (3.4-5.0)
[2020-10-21 07:23] LABS: BASO % 0.4 % (0.0-2.0); EOS # 0.4 (0.0-0.7); EOS % 3.8 % (0-4.0); GRAN # 6.4 (1.4-6.5); GRAN % 69.4 % (42.2-75.2); HEMATOCRIT 28.1 % (37.0-47.0); LYMPH # 1.7 (1.2-3.4); LYMPH % 18.3 % (20.0-51.0); MEAN CELL VOLUME 84 fl (80.0-100.0); MEAN CORPUSCULAR HEMOGLOBIN 24 pg (27.0-31.0); MEAN CORPUSCULAR HGB CONC 29 g/dl (33.0-37.0); MEAN PLATELET VOLUME 9.1 fl (7.4-10.4); MONO # 0.7 (0.1-0.6); MONO % 7.7 % (1.7-9.3); PLATELET COUNT 272 K/mm3 (130-400); RED BLOOD COUNT 3.35 M/mm3 (4.10-5.30)
--- NOTE | 2020-10-21 08:00 | NUR ---
Patient sitting up in bed working on eating breakfast, states that she is not very hungry. Patient worked with PT and tolerated well, reporting back pain /. Pain mediction requested. A&Ox4. VSS 2L NC O2, no reported SOB. IV CDI. No further needs expressed from the patient. Call light within reach
[2020-10-21 09:11] VITALS: BP 138/67; PULSE 85; TEMP 98.2
[2020-10-21 11:36] VITALS: BP 134/65; PULSE 77; TEMP 98.2
--- NOTE | 2020-10-21 12:50 | NUR ---
Picc pulled per sterile technique, pressure held and dressing applied. Patient tolerated well.
--- NOTE | 2020-10-21 13:03 | NUR ---
PEDRO update: PEDRO faxed DC order to [phone] [facility] discharge. Awaiting transportation time.
--- NOTE | 2020-10-21 15:48 | NUR ---
Patient transfered by wheelchair to [facility] by transporter. Personal belongings with the patient and discharge packet with the patient. Patient ambulated with walker and pivoted to the wheelchair. Nurse called report to Jean at [facility]. No further needs expressed from the patient
== END 2020-10-21 15:48 | disposition home or self-care (01) | DRG 286 ==
LOC: COL.ER 01:04 → MEDICAL 02:43
PROVIDERS: Emergency Medicine; Hospitalist; Nurse Practitioner Family; Physician Assistant; ADMIT Family Medicine
PROC: 02HV33Z Insertion of Infusion Device into Superior Vena Cava, Percutaneous Approach (ICD-10-PCS; 2020-10-16)
PROC: 4A023N7 Measurement of Cardiac Sampling and Pressure, Left Heart, Percutaneous Approach (ICD-10-PCS; principal; 2020-10-19)
PROC: B2111ZZ Fluoroscopy of Multiple Coronary Arteries using Low Osmolar Contrast (ICD-10-PCS; 2020-10-19)
PROC: 4A033BC Measurement of Arterial Pressure, Coronary, Percutaneous Approach (ICD-10-PCS; 2020-10-19)
PROC: 0DBL8ZZ Excision of Transverse Colon, Via Natural or Artificial Opening Endoscopic (ICD-10-PCS; 2020-10-20)
PROC: 0DB98ZX Excision of Duodenum, Via Natural or Artificial Opening Endoscopic, Diagnostic (ICD-10-PCS; 2020-10-20)
PROC: 0DB78ZX Excision of Stomach, Pylorus, Via Natural or Artificial Opening Endoscopic, Diagnostic (ICD-10-PCS; 2020-10-20)
PROC: 0DB38ZX Excision of Lower Esophagus, Via Natural or Artificial Opening Endoscopic, Diagnostic (ICD-10-PCS; 2020-10-20)
DX: I25.10 Atherosclerotic heart disease of native coronary artery without angina pectoris (principal); K21.01 Gastro-esophageal reflux disease with esophagitis, with bleeding; K29.71 Gastritis, unspecified, with bleeding; J96.01 Acute respiratory failure with hypoxia; I50.32 Chronic diastolic (congestive) heart failure; I11.0 Hypertensive heart disease with heart failure; K21.9 Gastro-esophageal reflux disease without esophagitis; I25.2 Old myocardial infarction; D50.9 Iron deficiency anemia, unspecified; E11.42 Type 2 diabetes mellitus with diabetic polyneuropathy; Z20.822 Contact with and (suspected) exposure to COVID-19; K63.5 Polyp of colon; E03.9 Hypothyroidism, unspecified; K57.30 Diverticulosis of large intestine without perforation or abscess without bleeding; G35 Multiple sclerosis; G47.33 Obstructive sleep apnea (adult) (pediatric); K44.9 Diaphragmatic hernia without obstruction or gangrene; M79.7 Fibromyalgia; K64.8 Other hemorrhoids; E66.01 Morbid (severe) obesity due to excess calories; G47.00 Insomnia, unspecified; E78.5 Hyperlipidemia, unspecified; Z68.39 Body mass index [BMI] 39.0-39.9, adult; Z79.02 Long term (current) use of antithrombotics/antiplatelets; Z79.01 Long term (current) use of anticoagulants; Z79.82 Long term (current) use of aspirin; Z79.891 Long term (current) use of opiate analgesic; Z99.81 Dependence on supplemental oxygen; Z95.5 Presence of coronary angioplasty implant and graft; Z86.711 Personal history of pulmonary embolism; Z86.718 Personal history of other venous thrombosis and embolism; Z90.710 Acquired absence of both cervix and uterus; Z88.8 Allergy status to other drugs, medicaments and biological substances
CPT/HCPCS: 99232-AI; 99233-AI; 99239; C1751; C1760; C1769; C1887; C1892; C1894; G0378; J0153; J1644; J1815; J2250; J2270; J2405; J2704; J3010; J7030; P9016; Q9967

== ENCOUNTER → 2020-11-08 | Outpatient (REF) ==
[~2020-11-08] MED LIST changes: +COLACE 100100 MG/CAP PO; +COUMADIN 22.5 MG/TAB PO; +IMDUR 60MG60 MG/TAB PO; +LEADER EYE ITCH5 ML OU; +PLAVIX 75MG TAB75 MG PO; +PRINIVIL40 MG PO; +RISPERDAL 0.5M0.5 MG PO; +RISPERDAL 1M1 MG/TAB PO; +ZOFRAN 4MG T4 MG/TAB PO
== END ==
LOC: ZLAB.WCH 09:29
DX: Z01.89 Encounter for other specified special examinations (principal)

== ENCOUNTER → 2020-12-19 | Outpatient (CLI) | payer MEDICARE, MEDICAID ==
[2020-12-19 10:52] LABS: BASO # 0.1 (0.0-0.2); BASO % 0.5 % (0.0-2.0); EOS # 0.3 (0.0-0.7); EOS % 3.2 % (0-4.0); GRAN # 7.1 (1.4-6.5); GRAN % 70.8 % (42.2-75.2); LYMPH % 19.8 % (20.0-51.0); MEAN CELL VOLUME 85 fl (80.0-100.0); MEAN CORPUSCULAR HGB CONC 29 g/dl (33.0-37.0); MEAN PLATELET VOLUME 9.6 fl (7.4-10.4); MONO # 0.5 (0.1-0.6); MONO % 5.3 % (1.7-9.3); PLATELET COUNT 304 K/mm3 (130-400); RED BLOOD COUNT 3.62 M/mm3 (4.10-5.30); REDCELL DISTRIBUTION WIDTH-CV 18.6 % (11.5-14.5)
[2020-12-19 10:55] LABS: HEMATOCRIT 30.8 % (37.0-47.0); HEMOGLOBIN 8.9 g/dl (12.5-16.0); MEAN CORPUSCULAR HEMOGLOBIN 25 pg (27.0-31.0)
[2020-12-19 10:58] LABS: ALBUMIN 3.1 gm/dL (3.5-5.0); BILIRUBIN,TOTAL 0.4 mg/dL (0.0-1.0); CALCIUM 8.9 mg/dL (8.4-10.2); CHOLESTEROL RISK RATIO 4.1; CREATININE, serum 0.75 (0.52-1.25); POTASSIUM 4.8 mmol/L (3.4-5.0); TOTAL PROTEIN 6.3 gm/dL (6.4-8.2)
[2020-12-19 11:27] LABS: THYROID STIMULATING HORMONE 0.975 uIU/mL (0.465-4.680)
== END ==
LOC: ZLAB.STJ 10:39
PROVIDERS: Family Medicine
DX: Z13.228 Encounter for screening for other metabolic disorders (principal); Z13.220 Encounter for screening for lipoid disorders; R79.89 Other specified abnormal findings of blood chemistry; R73.09 Other abnormal glucose; R94.6 Abnormal results of thyroid function studies

== ENCOUNTER → 2021-02-05 | Outpatient (CLI) | payer MEDICARE, MEDICAID ==
[2021-02-05 20:16] LABS: COLLECTION METHOD CLEAN CATCH
[2021-02-05 20:25] LABS: MUCOUS Present /lpf; PH 5 (5-8); SQUAMOUS EPITHELIAL 0-2 /hpf; URINE APPEARANCE Turbid; URINE BACTERIA None Seen /hpf; URINE BILIRUBIN Negative (NEGATIVE); URINE BLOOD Negative (NEGATIVE); URINE COLOR Amber; URINE GLUCOSE Negative (NEGATIVE); URINE KETONE Negative (NEGATIVE); URINE LEUKOCYTE ESTERASE Trace (NEGATIVE); URINE NITRATE Negative (NEGATIVE); URINE PROTEIN(semi-quant) Negative (NEGATIVE); URINE RBC None Seen /hpf; URINE UROBILINOGEN Negative (NEGATIVE)
== END ==
LOC: ZCOL.LAB 19:48
PROVIDERS: Family Medicine
DX: R30.9 Painful micturition, unspecified (principal)

== ENCOUNTER → 2021-03-14 | Outpatient (CLI) | payer MEDICARE, MEDICAID | LOC: COL.RAD 15:15 | DX: M17.11 Unilateral primary osteoarthritis, right knee (principal) ==

== ENCOUNTER → 2021-03-30 | Outpatient (CLI) | payer MEDICARE, MEDICAID | LOC: ZLAB.STJ 16:15 | DX: E11.40 Type 2 diabetes mellitus with diabetic neuropathy, unspecified (principal) ==

== ENCOUNTER → 2021-04-06 | Outpatient (CLI) | payer MEDICARE, MEDICAID ==
[2021-04-06 15:47] LABS: COLLECTION METHOD CLEAN CATCH
[2021-04-06 16:05] LABS: MUCOUS Present /lpf; PH 5 (5-8); SQUAMOUS EPITHELIAL 0-2 /hpf; URINE APPEARANCE Hazy; URINE BACTERIA Rare /hpf; URINE BILIRUBIN Negative (NEGATIVE); URINE BLOOD Negative (NEGATIVE); URINE COLOR Yellow; URINE GLUCOSE Negative (NEGATIVE); URINE KETONE Negative (NEGATIVE); URINE LEUKOCYTE ESTERASE 3+ (NEGATIVE); URINE NITRATE Negative (NEGATIVE); URINE PROTEIN(semi-quant) Negative (NEGATIVE); URINE UROBILINOGEN Negative (NEGATIVE)
== END ==
LOC: ZLAB.STJ 14:57
PROVIDERS: Family Medicine
DX: N39.0 Urinary tract infection, site not specified (principal)

== ENCOUNTER 2022-03-14 14:24 | Emergency (ER) | payer OTHER, MEDICAID ==
[~2022-03-14] VITALS: Ht 165.1 cm; Wt 112.7 kg
[2022-03-14 14:28] VITALS: TEMP 97.6
[2022-03-14 14:54] LABS: BASO # 0.1 K/mm3 (0.0-0.2); BASO % 0.5 % (0.0-2.0); EOS # 0.2 K/mm3 (0.0-0.7); EOS % 1.6 % (0.0-4.0); GRAN # 6.6 K/mm3 (1.4-6.5); HEMATOCRIT 34.4 % (37.0-47.0); LYMPH # 2.1 K/mm3 (1.2-3.4); LYMPH % 21.9 % (20.0-51.0); MEAN CELL VOLUME 82 fl (80.0-100.0); MEAN CORPUSCULAR HEMOGLOBIN 24 pg (27-31); MEAN CORPUSCULAR HGB CONC 29 g/dl (33.0-37.0); MEAN PLATELET VOLUME 9.3 fl (7.4-10.4); MONO # 0.6 K/mm3 (0.1-0.6); MONO % 6.7 % (1.7-9.3); PLATELET COUNT 271 K/mm3 (130-400); REDCELL DISTRIBUTION WIDTH-CV 18.5 % (11.5-14.5)
[2022-03-14 14:55] LABS: INR 3.8 (0.8-3.0); PROTHROMBIN TIME 43.7 SECONDS (9.7-12.8)
[2022-03-14 14:58] LABS: PARTIAL THROMBOPLASTIN TIME 51.2 SECONDS (26.0-37.0)
[2022-03-14 15:06] LABS: ALANINE AMINOTRANSFERASE 10 U/L (0-55); ALBUMIN 3.3 gm/dL (3.4-4.8); ALKALINE PHOSPHATASE 92 U/L (40-150); ANION GAP 11 mmol/L (7-16); AST,SGOT 17 U/L (5-34); BILIRUBIN,TOTAL 0.3 mg/dL (0.2-1.2); BLOOD UREA NITROGEN 18 mg/dL (10-20); CALCIUM 9.2 mg/dL (8.4-10.2); CARBON DIOXIDE 30 mmol/L (23-31); CHLORIDE 99 mmol/L (98-107); GLUCOSE 106 mg/dL (70-99); POTASSIUM 4.5 mmol/L (3.5-4.5); SODIUM 140 mmol/L (136-145); TOTAL PROTEIN 6.9 gm/dL (6.2-8.1)
[2022-03-14 15:12] LABS: TROPONIN-I < 0.010 ng/mL (0.00-0.033)
[2022-03-14] MEDS ORDERED: XANAX 0.5MG0.5 MG (15:12)
[2022-03-14] MEDS ORDERED: NORVASC 5MG5 MG/TAB (15:14)
[2022-03-14] MEDS ORDERED: LIPITOR 40MG TA40 MG (15:16)
[2022-03-14] MEDS ORDERED: ASTELIN NASAL S34 ML NAS (15:18)
[2022-03-14] MEDS ORDERED: THE MEDICINE S200 M2 (15:23)
[2022-03-14] MEDS ORDERED: ZYRTEC 10MG10 MG (15:24)
[2022-03-14] MEDS ORDERED: PRINIVIL10 MG (15:28)
[2022-03-14] MEDS ORDERED: COUMADIN 1MG1 MG/TAB (15:32)
[2022-03-14 17:56] VITALS: BP 116/70; PULSE 66
== END 2022-03-14 17:56 | disposition home or self-care (01) ==
LOC: COL.ER 14:24
PROVIDERS: Physician Assistant
DX: R07.89 Other chest pain (principal); I63.9 Cerebral infarction, unspecified; E11.9 Type 2 diabetes mellitus without complications; E66.01 Morbid (severe) obesity due to excess calories; Z86.718 Personal history of other venous thrombosis and embolism; Z86.711 Personal history of pulmonary embolism; Z79.01 Long term (current) use of anticoagulants

== ENCOUNTER 2022-07-17 13:06 | Inpatient (IN) | payer OTHER, MEDICAID ==
[~2022-07-17] VITALS: Ht 167.6 cm; Wt 122.5 kg
[~2022-07-17 13:06] MED LIST changes: +ASTELIN NASAL S34 ML NAS; +AZO-STANDARD95 MG PO; +CARDURA 2MG2 MG PO; +CLARITIN 1010 MG/TAB PO; +COUMADIN 1MG1 MG/TAB PO; +COUMADIN 5MG5 MG/TAB PO; +DESYREL 50MG50 MG PO; +FLEXERIL5 MG PO; +LASIX 20MG TABL20 MG PO; +LIPITOR 40MG TA40 MG PO; +LOPRESSOR 225 MG/TAB PO; +LYRICA 75MG CAP75 MG PO; +MONODOX100 PO; +NITROSTAT0.4 MG/TAB SL; +NORVASC 5MG5 MG/TAB PO; +PEPCID 20MG TAB20 MG PO; +PRINIVIL10 MG; +PROAIR HFA0.09 MG/AC IH; -SYNTHROID0.1 MG/TAB PO; +SYNTHROID0.137 MG PO; +THE MEDICINE S200 M2; +TORADOL 10MG TA10 MG PO; +ZOLOFT 100MG100 MG PO; -ZOLOFT 50MG50 MG; +ZYRTEC 10MG10 MG
[2022-07-17] MEDS ORDERED: GAS RELIEF125 MG PO (13:28)
[2022-07-17] MEDS ORDERED: GLUCOPHAGE500 MG/TAB PO (13:30)
[2022-07-17 13:34] LABS: BASO # 0.1 K/mm3 (0.0-0.2); BASO % 0.3 % (0.0-2.0); EOS # 0.1 K/mm3 (0.0-0.7); EOS % 0.3 % (0.0-4.0); GRAN # 12.7 K/mm3 (1.4-6.5); GRAN % 85.4 % (42.2-75.2); HEMATOCRIT 38.3 % (37.0-47.0); HEMOGLOBIN 10.9 g/dl (12.5-16.0); LYMPH # 1.3 K/mm3 (1.2-3.4); MEAN CELL VOLUME 88 fl (80.0-100.0); MEAN CORPUSCULAR HEMOGLOBIN 25 pg (27-31); MEAN CORPUSCULAR HGB CONC 29 g/dl (33.0-37.0); MEAN PLATELET VOLUME 9.4 fl (7.4-10.4); MONO # 0.7 K/mm3 (0.1-0.6); MONO % 4.5 % (1.7-9.3); PLATELET COUNT 228 K/mm3 (130-400); RED BLOOD COUNT 4.37 M/mm3 (4.10-5.30); REDCELL DISTRIBUTION WIDTH-CV 17.2 % (11.5-14.5)
[2022-07-17] MEDS ORDERED: PROBIOTIC-MAJOR PO (13:35)
[2022-07-17 13:50] LABS: ALANINE AMINOTRANSFERASE 18 U/L (0-55); ALBUMIN 3.2 gm/dL (3.4-4.8); ALKALINE PHOSPHATASE 114 U/L (40-150); ANION GAP 12 mmol/L (7-16); AST,SGOT 21 U/L (5-34); BILIRUBIN,TOTAL 0.6 mg/dL (0.2-1.2); BLOOD UREA NITROGEN 11 mg/dL (10-20); C-REACTIVE PROTEIN 3.87 mg/dL (0.00-0.50); CALCIUM 9.3 mg/dL (8.4-10.2); CARBON DIOXIDE 28 mmol/L (23-31); CHLORIDE 103 mmol/L (98-107); CREATININE, serum 1.06 mg/dL (0.57-1.11); GLUCOSE 134 mg/dL (70-99); POTASSIUM 4.4 mmol/L (3.5-4.5); SODIUM 143 mmol/L (136-145); TOTAL PROTEIN 7.3 gm/dL (6.2-8.1)
[2022-07-17] MEDS ORDERED: ULTRAM 50MG TAB50 MG PO (13:56)
[2022-07-17 13:58] LABS: TROPONIN-I < 0.010 ng/mL (0.00-0.033)
[2022-07-17] MEDS ORDERED: TYLENOL 8 HR PO (13:58)
[2022-07-17] MEDS ORDERED: AMBIEN 10MG10 MG PO (14:03)
[2022-07-17] MEDS ORDERED: IMODIUM 2MG CAPS2 MG PO (14:06)
[2022-07-17] MEDS ORDERED: ASPERCREME ARTH50 GM TP (14:08)
[2022-07-17 16:21] LABS: COLLECTION METHOD CATHETER
[2022-07-17 16:29] LABS: PH 5.5 (5.0-8.5); URINE APPEARANCE Clear (CLEAR/HAZY); URINE BLOOD TRACE-INTACT (NEGATIVE); URINE COLOR Yellow (YELLOW); URINE GLUCOSE Negative (NEGATIVE); URINE KETONE Negative (NEGATIVE); URINE NITRATE Negative (NEGATIVE); URINE PROTEIN(semi-quant) Negative (NEGATIVE); URINE UROBILINOGEN 0.2 E.U/dL (0.2-1.0)
[2022-07-17 16:30] LABS: SQUAMOUS EPITHELIAL 0-2 /hpf (0-10); URINE BACTERIA None Seen /hpf (NONE SEEN); URINE RBC 0-2 /hpf (0-2)
[2022-07-17 16:32] LABS: INR 2.2 (0.8-3.0)
[2022-07-17 20:10] VITALS: BP 126/89; PULSE 79; TEMP 98.7
--- NOTE | 2022-07-17 23:00 | NUR ---
PATIENT BROUGHT UP FROM ED. PATIENT ON 2 L OF O2 VIA NC. PATIENT A&0X3 AND DENIES PAIN AT THIS TIME. PATIENT DENIES FURTHER QUESTIONS OR CONCERNS AT THIS TIME
[2022-07-17 23:14] LABS: ARTERIAL BLD GAS O2 SATURATION 95.2 % (92-100); ARTERIAL BLD GAS TCO2 CT 33.6; ARTERIAL BLOOD GAS BASE EXCESS 4.8 (-2-2); ARTERIAL BLOOD GAS HCO3 31.8 meq/L (22-26); ARTERIAL BLOOD GAS PCO2 60.1 mmHg (35-45); ARTERIAL BLOOD GAS PO2 81.7 mmHg (80-100); ARTERIAL BLOOD GAS pH 7.34 (7.35-7.45)
[2022-07-18] VITALS (7 sets, daily range): BP systolic 110–151; BP diastolic 52–80; PULSE 72–81; TEMP 98–99.3
[2022-07-18 06:49] LABS: BASO % 0.2 % (0.0-2.0); EOS # 0.2 K/mm3 (0.0-0.7); EOS % 2.1 % (0.0-4.0); GRAN # 7.8 K/mm3 (1.4-6.5); GRAN % 75.3 % (42.2-75.2); LYMPH # 1.7 K/mm3 (1.2-3.4); LYMPH % 16.2 % (20.0-51.0); MEAN CELL VOLUME 87 fl (80.0-100.0); MEAN CORPUSCULAR HGB CONC 29 g/dl (33.0-37.0); MONO # 0.6 K/mm3 (0.1-0.6); MONO % 5.9 % (1.7-9.3); PLATELET COUNT 188 K/mm3 (130-400); RED BLOOD COUNT 3.54 M/mm3 (4.10-5.30); REDCELL DISTRIBUTION WIDTH-CV 17.2 % (11.5-14.5)
[2022-07-18 06:50] LABS: HEMATOCRIT 30.9 % (37.0-47.0); HEMOGLOBIN 8.8 g/dl (12.5-16.0); MEAN CORPUSCULAR HEMOGLOBIN 25 pg (27-31)
[2022-07-18 06:59] LABS: CALCIUM 8.8 mg/dL (8.4-10.2); CREATININE, serum 0.89 mg/dL (0.57-1.11); MAGNESIUM 1.9 mg/dL (1.6-2.6); POTASSIUM 3.6 mmol/L (3.5-4.5)
[2022-07-18 07:01] LABS: INR 1.8 (0.8-3.0); PROTHROMBIN TIME 20.3 SECONDS (9.7-12.8)
--- NOTE | 2022-07-18 10:40 | NUR ---
SHIFT ASSESSMENT COMPLETED AND MORNING MEDICATIONS ADMINISTERED PER ORDER. PATIENT IS ALERT AND ORIENTED. C/O PAIN RANGING FROM 6-8/10 TO HER RIGHT HIP, TREATED WITH PRN APAP. INCONTINENT OF URINE, AMANDO CARE AND BED BATH COMPLETED. PRESSURE PREVENTION MATTRESS OBTAINED AND PATIENT TURNED Q2. DENIES FURTHER NEEDS. CALL LIGHT WITHIN REACH.
--- NOTE | 2022-07-18 14:07 | NUR ---
Mount Loader met with patient to discuss discharge planning. Patient lives at [facility] in [place] and sees Dr. Ulloa for primary care. Patient obtains medications from [facility] and advised they are delivered to her. Patient had been using a walker for ambulation but also has an electric wheelchair. Patient does not wear oxygen normally. Patient reports she has assistance from staff with ADLS if needed. Patient has DPOA-HC in EMR designating her daughter, Britt (ph#[phone]). Patient would like to return to [facility] at time of discharge. PT/OT ordered. PEDRO spoke with patient's daughter, Britt to provide update. Britt advised patient has used [facility] in the past if PT/OT are needed. PEDRO contacted [facility] and left a message. PEDRO faxed clinical updates. Discharge Plan: [facility] [place]
--- NOTE | 2022-07-18 14:48 | NUR ---
UPDATE PROVIDED TO DAUGHTER PER HER REQUEST. PER DAUGHTER, SHE DOES NOT BELIEVE HER MOTHER'S SYMPTOMS ARE CAUSED BY HER MEDICATIONS. DR. VALDOVINOS UPDATED REGARDING DAUGHTER'S CONCERNS. THIS RN ADVISED DAUGHTER TO PARTICIPATE IN ROUNDS TOMORROW, DAUGHTER AGREEABLE.
--- NOTE | 2022-07-18 18:55 | NUR ---
PATIENT IN BED AT THIS TIME, STATES SHE IS DOING ALRIGHT. DENIES ANY NEEDS. AWAITING DELIVERY OF NEW PRESSURE MATTRESS HERS DOES NOT WORK PROPERLY. VISITING WITH FAMILY. CALL LIGHT IN REACH.
[2022-07-19 03:26] VITALS: BP 160/72; PULSE 84; TEMP 98.6
[2022-07-19 06:24] LABS: BASO % 0.3 % (0.0-2.0); EOS # 0.1 K/mm3 (0.0-0.7); EOS % 0.9 % (0.0-4.0); GRAN # 7.6 K/mm3 (1.4-6.5); HEMOGLOBIN 10.3 g/dl (12.5-16.0); LYMPH # 1.7 K/mm3 (1.2-3.4); LYMPH % 16.7 % (20.0-51.0); MEAN CELL VOLUME 85 fl (80.0-100.0); MEAN CORPUSCULAR HEMOGLOBIN 25 pg (27-31); MEAN CORPUSCULAR HGB CONC 29 g/dl (33.0-37.0); MEAN PLATELET VOLUME 9.5 fl (7.4-10.4); MONO # 0.4 K/mm3 (0.1-0.6); MONO % 4.5 % (1.7-9.3); PLATELET COUNT 224 K/mm3 (130-400); RED BLOOD COUNT 4.12 M/mm3 (4.10-5.30); REDCELL DISTRIBUTION WIDTH-CV 17.1 % (11.5-14.5)
[2022-07-19 06:25] LABS: INR 1.6 (0.8-3.0); PROTHROMBIN TIME 18.6 SECONDS (9.7-12.8)
[2022-07-19 06:42] LABS: CALCIUM 9.4 mg/dL (8.4-10.2); CREATININE, serum 0.86 mg/dL (0.57-1.11); MAGNESIUM 1.9 mg/dL (1.6-2.6); POTASSIUM 3.8 mmol/L (3.5-4.5)
[2022-07-19 06:49] LABS: HEMATOCRIT 35.1 % (37.0-47.0)
[2022-07-19 08:00] VITALS: BP 103/58; BP 139/66; PULSE 88; PULSE 97; TEMP 97.9
--- NOTE | 2022-07-19 11:12 | NUR ---
SHIFT ASSESSMENT COMPLETED AND MORNING MEDICATIONS ADMINISTERED PER ORDER. PATIENT IS ALERT AND ORIENTED X4, BUT DOES HAVE INTERMITTENT CONFUSION AND HALLUCINATIONS. PER DAUGHTER, THIS IS NORMAL FOR PATIENT WHEN SHE HAS NOT TAKEN HER RISPERDAL. PATIENT C/O PAIN TO HER RIGHT HIP, TREATED WITH PRN APAP AND REPOSITIONED. DENIES FURTHER NEEDS. FAMILY AT BEDSIDE. CALL LIGHT WITHIN REACH.
[2022-07-19 11:57] VITALS: BP 131/70; PULSE 83; TEMP 97.9
--- NOTE | 2022-07-19 14:04 | NUR ---
PER SWEDGER AND HS RN, PATIENT NOTED TO HAVE SOME HALLUCINATIONS. JERED ZELAYA UPDATED.
--- NOTE | 2022-07-19 15:00 | NUR ---
Technical Services Coordinator attended clinical rounds with the team. Patient's daughter is at bedside. Patient is hopeful to return to [facility] with Home Health through [facility]. PEDRO collaborated with PT who advised that patient would benefit from SNF, but could return to [place] if that is patient's preference. Patient does have an electric wheelchair at home that she can use as needed. SW met with patient to check in. Patient felt like therapy went well and wants to return to [facility]. PEDRO contacted Leo at [facility] and faxed referral. SW also provided update to daughter, Britt. SW attempted to contact [facility] and left a message. Discharge Plan: [facility] with [facility]
[2022-07-19 16:18] VITALS: BP 148/77; PULSE 87; TEMP 98.1
--- NOTE | 2022-07-19 17:29 | NUR ---
PATIENT IN BED AT THIS TIME. AMANDO CARE PROVIDED AND NEW PUREWICK PLACED. PATIENT TURNED FREQUENTLY AND PLACED ON PRESSURE PREVENTION MATTRESS. DENIES ANY NEEDS OR PAIN AT THIS TIME. CALL LIGHT WITHIN REACH.
[2022-07-19 20:49] VITALS: BP 149/86; PULSE 91; TEMP 99.1
--- NOTE | 2022-07-19 23:18 | NUR ---
PT REFUSING TO WEAR CPAP TONIGHT. PT STATES SHE "DOES NOT FEEL LIKE WEARING IT TONIGHT BUT MIGHT TRY TOMORROW." THIS RT ENCOURAGED PT TO WEAR CPAP AND THE BENEFITS, PT STILL DECLINED. MACHINE IS STANDBY OUTSIDE PT ROOM IF NEEDED. PT IN NO DISTRESS. PT ENCOURAGED TO CALL IF CHANGES HER MIND.
--- NOTE | 2022-07-19 23:43 | NUR ---
Pt in bed for shift assessment at 1999. A&O x4. Pt got repositioned, and expressed having pain on her lower back and both hips scored at 7/10. Tylenol given per emar along with evening medications. NEETA PICC line in place is CDI. Purewick in place for bladder incontinence. Pt reports feeling like small bugs are walking on her face every once in a while. Fall precautions in place. Belongings and call light within reach.
[2022-07-19 23:51] VITALS: BP 139/78; PULSE 88; TEMP 98.1
[2022-07-20 03:37] VITALS: BP 132/68; PULSE 96; TEMP 98.4
[2022-07-20 06:01] LABS: BASO % 0.2 % (0.0-2.0); EOS # 0.2 K/mm3 (0.0-0.7); GRAN # 5.7 K/mm3 (1.4-6.5); GRAN % 65.7 % (42.2-75.2); HEMOGLOBIN 10.4 g/dl (12.5-16.0); LYMPH # 2.1 K/mm3 (1.2-3.4); LYMPH % 24.6 % (20.0-51.0); MEAN CELL VOLUME 86 fl (80.0-100.0); MEAN CORPUSCULAR HEMOGLOBIN 25 pg (27-31); MEAN CORPUSCULAR HGB CONC 29 g/dl (33.0-37.0); MEAN PLATELET VOLUME 9.5 fl (7.4-10.4); MONO # 0.6 K/mm3 (0.1-0.6); PLATELET COUNT 248 K/mm3 (130-400); RED BLOOD COUNT 4.12 M/mm3 (4.10-5.30); REDCELL DISTRIBUTION WIDTH-CV 17.5 % (11.5-14.5)
[2022-07-20 06:05] LABS: HEMATOCRIT 35.6 % (37.0-47.0)
[2022-07-20 06:06] LABS: INR 1.5 (0.8-3.0); PROTHROMBIN TIME 17.6 SECONDS (9.7-12.8)
[2022-07-20 06:16] LABS: CALCIUM 9.4 mg/dL (8.4-10.2); CREATININE, serum 1.03 mg/dL (0.57-1.11); POTASSIUM 3.5 mmol/L (3.5-4.5)
[2022-07-20 07:15] VITALS: BP 138/81; PULSE 86; TEMP 99
[2022-07-20 11:07] VITALS: BP 111/75; PULSE 83; TEMP 99.4
[2022-07-20 16:15] VITALS: BP 142/77; PULSE 92; TEMP 98.9
[2022-07-20 20:45] VITALS: BP 124/69; PULSE 95; TEMP 98.3
--- NOTE | 2022-07-20 22:33 | NUR ---
PRESENTED TO PATIENT'S ROOM WITH HOSPITAL OWNED V60 CPAP MACHINE. TRANSFORMER MECHANIC IN ROOM. PATIENT WARNED THIS TALENT MANAGEMENT MANAGER THAT SHE IS VERY CLAUSTROPHOBIC. EDUCATING PATIENT ABOUT HOSPITAL CPAP UNIT AND MASK. PATIENT VERBALIZED UNDERSTANDING AND AGREES TO TRY AND WEAR TONIGHT. PT ASKS "DO I HAVE TO WEAR ALL NIGHT?" STATED TO PATIENT THAT WE WOULD LIKE HER TO WEAR UNIT THE ENTIRE NIGHT WHILE SLEEPING. STATED TO PT THE MORE TIME SPENT ON UNIT THE BETTER. PT REFUSING TO GO ON MASK RIGHT NOW. STATES "I HAVE ONE PILL LEFT." PT NOT WANTING TO PLACE CPAP ON AND THEN HAVE TO TAKE OFF FOR TRAMADOL MED. THIS TALENT MANAGEMENT MANAGER VERBALIZED UNDERSTANDING. STATED THAT I WOULD WAIT ON THE UNIT FOR HER RN TO GIVE HER MED. NOTIFIED YAHAIRA HAYES THAT PT WOULD NOT GO ON CPAP UNTIL AFTER SHE RECEIVED HER TRAMADOL. ABIGAIL VERBALIZED UNDERSTANDING.
--- NOTE | 2022-07-20 22:38 | NUR ---
PATIENT DOES NOT KNOW HOME SETTING. SHE STATES, "I THINK MAYBE 3. THIS NUMBER STANDS OUT FOR ME" SHE WAS NOT COMPLETELY SURE. CALLED MARTIR AND VERIFIED WHETHER A CPAP OF 10 WOULD BE APPROPRIATE FOR PT. JERED JENNINGS VERBALIZED UNDERSTANDING AND SAID THIS SETTING WAS FINE.
[2022-07-20 23:20] VITALS: BP 134/85; PULSE 78; TEMP 97.8
--- NOTE | 2022-07-20 23:37 | NUR ---
RECEIVED CALL FROM CLERICAL ADMINISTRATIVE ASSISTANT STATING THAT MEDICAL HAD CALLED AND STATED THAT PATIENT WAS NEEDING TO SPEAK WITH CLERICAL ADMINISTRATIVE ASSISTANT. THIS CALL WAS AROUND 2305. PRESENTED TO PATIENTS ROOM. SHE STATES THAT THE MASK WAS MAKING NOISE AND NOT WORKING FOR HER. CHANGED MASK TO A SIZE M. CLERICAL ADMINISTRATIVE ASSISTANT X2 IN ROOM ADJUSTING MASK. CPAP SETTING ADJUSTED FOR OPTIMAL PT COMFORT AND READINGS. LEFT ROOM. RECEIVED CALL AT 2324 FROM AID ON MEDICAL FLOOR. PT HAD DENTURES IN AND WAS WANTING THEM TAKEN OUT. PRESENTED BACK TO ROOM. CPAP MASK TAKEN OFF AND DENTURES PLACED IN LITTLE BLUE CUP WITH LID. LID AND CUP LABELED AND PATIENT SHOWN CUP AND LABELS. PT VERBALIZED UNDERSTANDING. CPAP PLACED BACK ON FACE AND SECURED. MASK ADJUSTED TO CORRECT LEAK.
[2022-07-21 03:37] VITALS: BP 124/77; PULSE 85; TEMP 97.6
--- NOTE | 2022-07-21 05:37 | NUR ---
pt placed on CPAP per RT @ HS on RA, tolerated well. no SSI required this shift, tramadol given for pain x1. repositioned in bed q2hr, on air mattress. PICC line patent/secure to TED.
--- NOTE | 2022-07-21 06:34 | NUR ---
Pt c/o cramping in left hand, K+ has been low last 3 days, replaced yesterday no lab orders for this am, will notify hospitalist.
--- NOTE | 2022-07-21 07:05 | NUR ---
RA SPO2 88%. PLACED ON 1 LPM NC 90%. RN NOTIFIED
[2022-07-21 07:25] VITALS: BP 116/72; PULSE 83; TEMP 99.2
--- NOTE | 2022-07-21 08:00 | NUR ---
Patient is resting in bed, alert and oriented x 4, VSS, franki light temp. States generalized pain. 1L O2 NC. Assessment completed, meds provided, no ther needs at this time. Call light within reach.
--- NOTE | 2022-07-21 11:30 | NUR ---
PEDRO informed that patient would be discharging on this day back to [facility] with HH services from [facility]. PEDRO sent dc documentation to [facility].
[2022-07-21 11:41] VITALS: BP 105/66; PULSE 80; TEMP 98.7
--- NOTE | 2022-07-21 13:59 | NUR ---
Patient was provided with discharge information, all questions answered. PICC was discontinued. Cole came to pick her up.
== END 2022-07-21 13:30 | disposition home health service (06) | DRG 189 ==
LOC: COL.ER 13:06 → MEDICAL 15:49 → EDBEDREQ 18:27 → MEDICAL 21:00
PROVIDERS: Nurse Practitioner; Physician Assistant; ADMIT Internal Medicine
PROC: 02HV33Z Insertion of Infusion Device into Superior Vena Cava, Percutaneous Approach (ICD-10-PCS; principal; 2022-07-17)
DX: J96.01 Acute respiratory failure with hypoxia (principal); I50.32 Chronic diastolic (congestive) heart failure; G93.40 Encephalopathy, unspecified; G35 Multiple sclerosis; G47.33 Obstructive sleep apnea (adult) (pediatric); I11.0 Hypertensive heart disease with heart failure; I27.20 Pulmonary hypertension, unspecified; I07.1 Rheumatic tricuspid insufficiency; I44.0 Atrioventricular block, first degree; D50.9 Iron deficiency anemia, unspecified; I25.10 Atherosclerotic heart disease of native coronary artery without angina pectoris; E03.9 Hypothyroidism, unspecified; E11.9 Type 2 diabetes mellitus without complications; D72.829 Elevated white blood cell count, unspecified; M79.7 Fibromyalgia; K21.9 Gastro-esophageal reflux disease without esophagitis; E66.01 Morbid (severe) obesity due to excess calories; M25.551 Pain in right hip; F32.A Depression, unspecified; E78.5 Hyperlipidemia, unspecified; Z20.822 Contact with and (suspected) exposure to COVID-19; G47.00 Insomnia, unspecified; Z79.01 Long term (current) use of anticoagulants; Z79.84 Long term (current) use of oral hypoglycemic drugs; Z79.890 Hormone replacement therapy; Z95.5 Presence of coronary angioplasty implant and graft; Z86.14 Personal history of Methicillin resistant Staphylococcus aureus infection; Z86.711 Personal history of pulmonary embolism; Z86.718 Personal history of other venous thrombosis and embolism; Z87.891 Personal history of nicotine dependence; Z91.199 Patient's noncompliance with other medical treatment and regimen due to unspecified reason; Z90.710 Acquired absence of both cervix and uterus; Z90.49 Acquired absence of other specified parts of digestive tract; Z88.8 Allergy status to other drugs, medicaments and biological substances
CPT/HCPCS: OP; C1751; G0378; J1815; J1940